=== PATIENT | male | born 2000 | race Caucasian/White ===

== ENCOUNTER 2022-08-22 01:46 | Emergency (ER) | payer MEDICAID ==
[~2022-08-22] VITALS: Ht 177.8 cm; Wt 79.4 kg
[2022-08-22 01:53] VITALS: BP_SYST 127
--- NOTE | 2022-08-22 01:59 | NUR ---
Provided with urine cup for urine sample collection
--- NOTE | 2022-08-22 01:59 | NUR ---
Patient triaged and placed in waiting room. VSS and patient appears in no acute distress at this time. Accompanied by family, awaiting available bed, and MD notified of need for MSE.
--- NOTE | 2022-08-22 02:26 | NUR ---
Patient came in to the ER with complains of RUQ abdominal pain radiating to his back since Friday. Has been seen at [facility] and was given Cylinder and US of gallbladder was performed with negative result as reported. Patient reports nausea, vomiting and hard bowel movement. Patient claims vomiting episode today and still feeling nauseous. Patient reports severe pain 10/10 at this time. Patient denies urinary burning, frequency and urgency. Breathing easy, respirations even unlabored. Patient with history of Gastritis. Will continue to monitor
[2022-08-22] MEDS ORDERED: ONDANSETRON HCL 4 MG/2 ML VIAL IVP ONE (02:45)
[2022-08-22] MEDS ORDERED: MORPHINE 4 MG INJ. 4 MG/ML VIAL IVP ONE (02:45)
[2022-08-22] MEDS ORDERED: NACL 0.9% 1,000 ML IV ONE (02:45)
--- NOTE | 2022-08-22 02:52 | NUR ---
Patient to CT accompanied by tech, for CT of abdomen and pelvis w/o contrast
--- NOTE | 2022-08-22 02:56 | NUR ---
Patient back from CT accompanied by radiology.
[2022-08-22 02:58] LABS: BASOPHILS # (AUTO) 0.1 K/uL (0.0-0.2); BASOPHILS % (AUTO) 0.9 % (0.0-2.0); EOSINOPHILS % (AUTO) 0.4 % (0.0-4.0); HEMATOCRIT 43.1 % (36-54); LYMPHOCYTES # (AUTO) 1.4 K/uL (1.0-5.5); LYMPHOCYTES % (AUTO) 16.8 % (20.5-51.5); MEAN CORPUSCULAR VOLUME 86 fL (79.0-98.0); MONOCYTES # (AUTO) 0.8 K/uL (0.0-1.0); MONOCYTES % (AUTO) 9.8 % (1.7-9.3); NEUTROPHILS # (AUTO) 5.8 K/uL (1.8-7.7); NEUTROPHILS % (AUTO) 72.1 % (40.0-70.0); PLATELET COUNT (AUTO) 227 K/uL (130-430); RED BLOOD CELL COUNT(AUTO) 5.01 MIL/uL (4.2-6.2); RED CELL DISTRIBUTION WIDTH 13.8 % (9.0-15.0); WHITE BLOOD COUNT (AUTO) 8.1 K/uL (4.5-11.0)
--- NOTE | 2022-08-22 03:15 | NUR ---
# 20 gauge angiocath placed to RIGHT AC. Use of asceptic technique. Opsite placed over site. Blood return noted. Flushed with 10 cc of normal saline. No evidence of infiltration noted. Patient tolerated well.
[2022-08-22 03:18] LABS: CREATININE 0.95 mg/dL (0.55-1.30); POTASSIUM 3.8 mmol/L (3.5-5.1)
[2022-08-22 03:29] LABS: ALBUMIN 3.7 g/dL (3.4-4.8); TOTAL BILIRUBIN 0.7 mg/dL (0.0-1.0)
--- NOTE | 2022-08-22 04:09 | NUR ---
Patient resting comfortably in bed with side rails raised. Patient's father at bedside. Nad noted at this time.
[2022-08-22] MEDS ORDERED: LIDO20SO24 PO (04:52)
[2022-08-22] MEDS ORDERED: FAMO40TA71 PO (04:52)
[2022-08-22] MEDS ORDERED: ANT30 PO (04:52)
[2022-08-22] MEDS ORDERED: MOM PO (05:05)
[2022-08-22] MEDS ORDERED: HYDROcodone/ACETAMIN 5-325 MG TAB (NORCO/ VICODIN) PO ONE (05:15)
[2022-08-22 05:30] VITALS: BP_SYST 127
--- NOTE | 2022-08-22 05:30 | NUR ---
Patient given written and verbal discharge instructions and verbalizes understanding. ER MD discussed with patient the results and treatment provided. Patient in stable condition. ID arm band removed. IV catheter removed intact and dressing applied, no active bleeding. Rx of pepcid, maalox plus, lidocaine given. Patient educated on pain management and to follow up with PMD. Pain Scale 0/10. Opportunity for questions provided and answered. Medication side effect fact sheet provided. Patient A/Ox4, VSS, ambulatory, resp even and unlabored. Patient in stable condition and accompanined by father upon discharge.
== END 2022-08-22 05:30 | disposition home or self-care (01) ==
LOC: SED 01:46
DX: K29.70 Gastritis, unspecified, without bleeding (principal); R10.11 Right upper quadrant pain; R68.83 Chills (without fever); K59.00 Constipation, unspecified; Z79.899 Other long term (current) drug therapy
CPT/HCPCS: 99284; 74176; 96374; 96361; 96375; 80053; 85025; 36415; 76376; J2405; J2270; J7030